=== PATIENT | male | born 1960 | race Caucasian/White ===

== ENCOUNTER 2016-12-03 13:40 | Emergency (ER) | payer OTHER ==
[2016-12-03] MEDS ORDERED: Aspirin Low Dose CHEW TAB* 81 MG PO ONE (14:13)
[2016-12-03 14:29] LABS: Hematocrit 46 % (42-52); Hemoglobin 15.2 g/dl (14.0-18.0); Mean Corpuscular HGB Conc 33 g/dl (31-36); Mean Corpuscular Hemoglobin 31 pg (27-31); Mean Corpuscular Volume 92 fL (80-94); Mean Platelet Volume 9 um3 (7.4-10.4); Red Blood Count 4.97 10^6/ul (4.0-5.4); Red Cell Distribution Width 14 % (10.5-15); White Blood Count 8.9 10^3/ul (3.5-10.8)
--- NOTE | 2016-12-03 14:46 | RAD ---
Indication: Right-sided chest pain. Single frontal view of the chest performed at 1420 hours was reviewed. Comparison is made with previous exam dated January 27, 2015. Hyperinflated lung gray are noted. The cardiac silhouette is unremarkable. Multiple pleural-based soft tissues are noted in the left midlung zone and left hemidiaphragm consistent with pleural plaques. This is unchanged from previous exam. IMPRESSION: HYPERINFLATED LUNG GRAY WITH PLEURAL PLAQUES. NO ALVEOLAR CONSOLIDATION IS NOTED.
[2016-12-03 14:47] LABS: Albumin 4.3 g/dL (3.2-5.2); BUN/Creatinine Ratio 23.2 (8-20); Calcium 9.4 mg/dL (8.6-10.3); EGFR African American 124.5 (>60); EGFR Non-African American 96.8 (>60); Total Bilirubin 0.6 mg/dL (0.2-1.0); Total Protein 7.3 g/dL (6.4-8.9)
--- NOTE | 2016-12-03 14:47 | ED ---
HPI Chest Pain - HPI Summary HPI Summary: 56M presents with right sided chest pain s/p shoveling. He admits to SOB but states that is chronic because he has COPD. He states the pain sometimes is in the center of his chest also. He has not taken anything for the pain. He states that he does have a family history of heart disease. He describes it as a sharp pain. The pain is worst when he moves. He also admits to a chronic cough that remains unchanged. He denies any n/v or abdominal pain. He denies any fever. He is a smoker - History of Current Complaint Chief Complaint: EDChestWallPain Time Seen by Provider: 12/03/16 13:53 Pain Intensity: 10 - Allergy/Home Medications Allergies/Adverse Reactions: Allergies Allergy/AdvReac Type Severity Reaction Status Date / Time No Known Allergies Allergy Verified 12/03/16 13:41 PMH/Surg Hx/FS Hx/Imm Hx Endocrine/Hematology History: Denies: Hx Diabetes Cardiovascular History: Denies: Hx Congestive Heart Failure, Hx Hypertension Respiratory History: Reports: Hx Chronic Obstructive Pulmonary Disease (COPD), Other Respiratory Problems/Disorders - COPD Musculoskeletal History: Reports: Hx Arthritis Comment Only: Other Musculoskeletal History - hip surgery Sensory History: Reports: Hx Contacts or Glasses Denies: Hx Hearing Aid Opthamlomology History: Reports: Hx Contacts or Glasses Psychiatric History: Reports: Hx Anxiety - Surgical History Surgery Procedure, Year, and Place: hip surgery Hx Anesthesia Reactions: No - Immunization History Date of Tetanus Vaccine: PT STATES UNSURE Date of Influenza Vaccine: NONE Infectious Disease History: No Infectious Disease History: Denies: Traveled Outside the [place] in Last 30 Days - Family History Known Family History: Positive: Cardiac Disease - Social History Alcohol Use: Daily Alcohol Amount: 6 pack Substance Use Type: Reports: None Smoking Status (MU): Heavy Every Day Tobacco Smoker Type: Cigarettes Amount Used/How Often: 1-1.5 PPD Length of Time of Smoking/Using Tobacco: 40 YRS Have You Smoked in the Last Year: Yes Review of Systems Negative: Fever Positive: Chest Pain Positive: Shortness Of Breath, Cough All Other Systems Reviewed And Are Negative: Yes Physical Exam Triage Information Reviewed: Yes Vital Signs On Initial Exam: Initial Vitals Temp Pulse Resp BP Pulse Ox 97.4 F 91 18 143/100 100 12/03/16 13:41 12/03/16 13:41 12/03/16 13:41 12/03/16 13:41 12/03/16 13:41 Vital Signs Reviewed: Yes Appearance: Positive: Well-Appearing Skin: Positive: Warm, Dry Head/Face: Positive: Normal Head/Face Inspection Eyes: Positive: Normal, Conjunctiva Clear ENT: Positive: Normal ENT inspection, Pharynx normal, TMs normal Respiratory/Lung Sounds: Positive: Clear to Auscultation, Breath Sounds Present , Other - reproducible tenderess to right side of chest and sternum Cardiovascular: Positive: Normal, RRR - Proctor Coma Scale Coma Scale Total: 15 Diagnostics - Vital Signs Vital Signs Temp Pulse Resp BP Pulse Ox 12/03/16 14:15 138/102 12/03/16 14:04 99.5 F 24 12/03/16 14:00 135/89 12/03/16 13:58 83 96 12/03/16 13:56 141/102 12/03/16 13:41 97.4 F 91 18 143/100 100 - Laboratory Lab Results: Lab Results 12/03/16 12/03/16 12/03/16 Range/Units 14:20 14:20 14:20 WBC 8.9 (3.5-10.8) 10^3/ul RBC 4.97 (4.0-5.4) 10^6/ul Hgb 15.2 (14.0-18.0) g/dl Hct 46 (42-52) % MCV 92 (80-94) fL MCH 31 (27-31) pg MCHC 33 (31-36) g/dl RDW 14 (10.5-15) % Plt Count 235 (150-450) 10^3/ul MPV 9 (7.4-10.4) um3 Neut % (Auto) 72.8 (38-83) % Lymph % (Auto) 17.2 L (25-47) % Griggs % (Auto) 9.3 H (1-9) % Eos % (Auto) 0.1 (0-6) % Baso % (Auto) 0.6 (0-2) % Absolute Neuts (auto) 6.5 (1.5-7.7) 10^3/ul Absolute Lymphs (auto) 1.5 (1.0-4.8) 10^3/ul Absolute Monos (auto) 0.8 (0-0.8) 10^3/ul Absolute Eos (auto) 0 (0-0.6) 10^3/ul Absolute Basos (auto) 0.1 (0-0.2) 10^3/ul Absolute Nucleated RBC 0 10^3/ul Nucleated RBC % 0 D-Dimer, Quantitative 367 H (Less Than 230) ng/mL Lactic Acid 0.6 (0.5-2.0) mmol/L Result Diagrams: 12/03/16 14:20 12/03/16 14:20 Lab Statement: Any lab studies that have been ordered have been reviewed, and results considered in the medical decision making process. - Radiology chest Xray Interpretation: Positive (See Comments) - IMPRESSION: HYPERINFLATED LUNG GRAY WITH PLEURAL PLAQUES. NO ALVEOLAR CONSOLIDATION IS NOTED. Radiology Interpretation Completed By: Radiologist - CT chest CT Interpretation: Positive (See Comments) - IMPRESSION: 1. NO EVIDENCE FOR PULMONARY EMBOLISM. 2. CALCIFIED LEFT LOWER LOBE NODULE AND LEFT HILAR LYMPH NODES CONSISTENT WITH OLD GRANULOMATOUS DISEASE. 3. MULTIPLE CALCIFIED PLEURAL PLAQUES. 4. EMPHYSEMA. CT Interpretation Completed By: Radiologist - EKG No standard instances Cardiac Rate: NL EKG Rhythm: Sinus Rhythm ST Segment: Normal Chest Pain Course/Dx - Course Course Of Treatment: 56M presents with right sided chest pain for 2 days. He states that it started after shoveling. He admits to chronic cough that is unchanged and shortness of breath that is unchanged. on exam tender to palpation of right ribs. ordered labs troponin normal, d-dimer elevated so got CTA showed COPD and pleural plaques same as xray. discussed results with patient likely sprain. advised to quit smoking. told to follow up with primary. patient understands and agrees with plan - Chest Pain Differential Diagnosis/HQI/PQRI: Acute [place], Chest Wall, Lower Respiratory Infection - Diagnoses Provider Diagnoses: Chest wall pain Discharge - Discharge Plan Condition: Good Disposition: HOME Patient Education Materials: Chest Wall Pain (ED) Referrals: Keshav Rosales MD [Primary Care Provider] - Additional Instructions: Use inhaler for any shortness of breath Take Tylenol or ibuprofen for pain every [address] ice on area Follow up with primary within 5 days Return to ED if develop any new or worsening symptoms
[2016-12-03] MEDS ORDERED: Iohexol 350* (CONTRAST) 500 ML MDV IV ONE (15:48)
--- NOTE | 2016-12-03 16:37 | RAD ---
INDICATION: Elevated d-dimer and chest pain. COMPARISON: Comparison is made with a prior chest x-ray study from December 03, 2016 and correlation is made with a prior CT angiogram of the chest from May 27, 2014. TECHNIQUE: A CT angiogram of the chest was performed with intravenous following intravenous injection of 60 ml of Omnipaque 350 nonionic contrast. Contiguous axial sections were obtained from the lung apices through the lung bases. Images were reconstructed in the coronal and sagittal planes. FINDINGS: There is relatively homogeneous opacification of the pulmonary arteries. No intraluminal filling defect or pulmonary embolism is seen. The heart is within normal limits in size. No pericardial effusion is present. The thoracic aorta is normal in caliber and demonstrates homogeneous contrast opacification. No significant enlarged mediastinal or hilar lymph nodes are seen. There are calcified lymph nodes in the left hilum consistent with old granulomatous disease. There is moderate centrilobular emphysematous change present. There is left apical parenchymal scarring which is unchanged. There are multiple calcified left pleural plaques. There is a small dependent infiltrate in the right lower lobe most consistent with atelectasis. No pleural effusion or pneumothorax is seen. There is a calcified nodule in the left lower lobe measuring 0.8 x 0.4 cm in size most consistent with old granulomatous disease. Images of the upper abdomen demonstrate multiple splenic calcifications also consistent with old granulomatous disease. No significant focal osseous abnormality is seen. IMPRESSION: 1. NO EVIDENCE FOR PULMONARY EMBOLISM. 2. CALCIFIED LEFT LOWER LOBE NODULE AND LEFT HILAR LYMPH NODES CONSISTENT WITH OLD GRANULOMATOUS DISEASE. 3. MULTIPLE CALCIFIED PLEURAL PLAQUES. 4. EMPHYSEMA.
[2016-12-03 17:08] VITALS: BP 154/108
== END 2016-12-03 17:11 | disposition home or self-care (01) ==
LOC: ED 13:40
DX: R07.89 Other chest pain (principal); J44.9 Chronic obstructive pulmonary disease, unspecified; F17.210 Nicotine dependence, cigarettes, uncomplicated; F41.9 Anxiety disorder, unspecified
CPT/HCPCS: 36415; 71010; 71275; 80053; 83605; 83880; 84484; 85025; 85379; 93005; 99283; A9270-GY; Q9967

== ENCOUNTER 2018-12-02 19:50 | Emergency (ER) | payer MEDICARE, MEDICAID ==
--- NOTE | 2018-12-02 20:02 | ED ---
Head Injury - HPI Summary HPI Summary: This patient is a 58 year old M brought in by ambulance to ED with a chief complaint of head injury since [employer]. The CC is described as abrasions on the L forehead and cheek. The patient reports he was having beer and fell down. Per EMS, they found him at a gas station and the patient had fallen onto asphalt and concrete. The patient reports he was able to get off the ground but it was difficult. He reports things were fuzzy. The patient rates the pain 0/10 in severity. Symptoms aggravated by nothing. Symptoms alleviated by nothing. Patient denies any other pain in LE. PMHx of COPD. Patient is a smoker. - History Of Current Complaint Stated Complaint: INTOXICATED 2208 PER EMS Hx Obtained From: Patient, EMS Mechanism Of Injury: Fall From A Standing Position Onset/Duration: Started Minutes Ago, Still Present Severity Currently: None Pain Intensity: 0 Pain Scale Used: 0-10 Numeric Location of Head Injury: Frontal - L forehead and cheek Aggravating Factor(s): Other: - nothing Alleviating Factor(s): Other: - nothing Associated Signs And Symptoms: Other: - abrasion to L forehead and cheek, denies any other pain - Allergies/Home Medications Allergies/Adverse Reactions: Allergies Allergy/AdvReac Type Severity Reaction Status Date / Time No Known Allergies Allergy Verified 12/03/16 13:41 PMH/Surg Hx/FS Hx/Imm Hx Endocrine/Hematology History: Denies: Hx Diabetes Cardiovascular History: Denies: Hx Congestive Heart Failure, Hx Hypertension Respiratory History: Reports: Hx Chronic Obstructive Pulmonary Disease (COPD), Other Respiratory Problems/Disorders - COPD History: Denies: Hx Renal Disease Musculoskeletal History: Reports: Hx Arthritis Comment Only: Other Musculoskeletal History - hip surgery Sensory History: Reports: Hx Contacts or Glasses Denies: Hx Hearing Aid Opthamlomology History: Reports: Hx Contacts or Glasses Psychiatric History: Reports: Hx Anxiety - Surgical History Surgery Procedure, Year, and Place: hip surgery Hx Anesthesia Reactions: No - Immunization History Date of Tetanus Vaccine: PT STATES UNSURE Date of Influenza Vaccine: NONE - Family History Known Family History: Positive: Cardiac Disease - Social History Alcohol Use: Daily Alcohol Amount: 6 pack Substance Use Type: Reports: None Smoking Status (MU): Heavy Every Day Tobacco Smoker Type: Cigarettes Amount Used/How Often: 1-1.5 PPD Length of Time of Smoking/Using Tobacco: 40 YRS Have You Smoked in the Last Year: Yes Review of Systems Positive: Other - patient was intoxicated Positive: Other - denies any pain in LE Positive: Other - head injury, abrasions to L forehead and cheek Neurological: Other - "things were fuzzy" after he fell All Other Systems Reviewed And Are Negative: Yes Physical Exam - Summary Physical Exam Summary: Appearance: Appears intoxicated Skin: Warm, dry, no obvious rash, Large abrasions to L forehead and cheek, no macular trauma, no erythema Eyes: sclera anicteric, no conjunctival pallor ENT: mucous membranes moist Neck: no tenderness, FROM Respiratory: No signs of respiratory distress Cardiovascular: Appears well perfused, pulses are nml Abdomen: deferred Musculoskeletal: Moving all 4 extremities without obvious discomfort Neuro: Patient is awake and alert, speech is slurred due to intoxication GCS: 15 Triage Information Reviewed: Yes Vital Signs On Initial Exam: Initial Vitals Temp Pulse Resp BP Pulse Ox 97.9 F 60 18 123/84 97 12/02/18 19:52 12/02/18 19:52 12/02/18 19:52 12/02/18 19:52 12/02/18 19:52 Vital Signs Reviewed: Yes Diagnostics - Laboratory Lab Statement: Any lab studies that have been ordered have been reviewed, and results considered in the medical decision making process. - CT Brain CT CT Interpretation Completed By: Radiologist Summary of CT Findings: 1. There is stable age-related diffuse cerebral volume loss and chronic microvascular ischemic disease. 2. No acute intracranial pathology. Dr. Bang has reviewed this radiology report. Re-Evaluation - Re-Evaluation First Eval Re-Evaluation Time: 21:10 Comment: Discussed results with the patient. Second Eval Re-Evaluation Time: 22:30 Comment: Patient wants to go home. Discussed plan for discharge. Head Injury Course/Dx Assessment/Plan: This patient is a 58 year old M brought in by ambulance to ED with a chief complaint of head injury since [employer]. This patient will be discharged with dx of alcohol intoxication and head injury. Patient understands and agrees with this plan. - Diagnoses Differential Diagnosis/HQI/PQRI: Other - alcohol intoxication and head injury Provider Diagnoses: Alcohol intoxication, Head injury Discharge - Sign-Out/Discharge Documenting (check all that apply): Patient Departure - discharge Patient Received Moderate/Deep Sedation with Procedure: No - Discharge Plan Condition: Good Disposition: HOME Patient Education Materials: Head Injury (ED), Alcohol Intoxication (ED), Abrasion (ED) Referrals: Keshav Rosales MD [Primary Care Provider] - If Needed - Attestation Statements Document Initiated by Scribe: Yes Documenting Scribe: Familia Jacobsen Provider For Whom Scribe is Documenting (Include Credential): Arjun Bang MD Scribe Attestation: IFamilia, scribed for Arjun Bang MD on 12/02/18 at 2245. Status of Scribe Document: Ready
[2018-12-02 22:57] VITALS: BP 125/82
== END 2018-12-02 23:28 | disposition home or self-care (01) ==
LOC: ED 19:50
DX: F10.129 Alcohol abuse with intoxication, unspecified (principal); S09.90XA Unspecified injury of head, initial encounter; S00.81XA Abrasion of other part of head, initial encounter; W19.XXXA Unspecified fall, initial encounter; Y92.524 Gas station as the place of occurrence of the external cause; J44.9 Chronic obstructive pulmonary disease, unspecified; F17.210 Nicotine dependence, cigarettes, uncomplicated
CPT/HCPCS: 70450; 99283